=== PATIENT | female | born 1995 | race American Indian/Alaskan Native ===

== ENCOUNTER 2017-03-14 17:16 | Inpatient (IN) | payer OTHER ==
[~2017-03-14] VITALS: Ht 162.6 cm; Wt 92.0 kg
[~2017-03-14 17:16] MED LIST: ASCORBIC ACID500 M3 PO; BIRTH CONTROL PO; FERROUS SULFAT325 MG PO; LEVORA-281 EACH PO; OXYCODON-ACETA1 EAC2 PO; VITAMIN D35000 UNIT PO
--- NOTE | 2017-03-16 07:40 | PR ---
[facility] [address] [facility] [address] [facility] [place], [place] [address] Signed PP Progress Notes Datetime Report Generated by KAROLINE: 03/16/2017 07:40 SUBJECTIVE: [id number] Pain: Within normal limits Vital Signs: [id number] Vital Signs: Reviewed; Within Normal Limits EXAM: [id number] Cardiovascular: Not Done Respiratory: Not Done Abdomen/Uterus: Abnormal Lochia: Normal Vulva/Perineum: Not Done Breasts: Not Done CVA Tenderness: Not Done Extremities: Normal Incision: Not Applicable Progress: Normal Exam Comments: Fundus firm, NT @ U-1. H/H /27.5, WBC 17.8, plat 255k IMPRESSION/PLAN/PROCEDURES: [id number] Impression: Normal progression Plan: Discharge Procedures: None Progress Notes: Doing well. Desires D/C today. Signing Physician: Kimmie Tinsley MD CC: *Electronically Signed* 03/16/17 0740 KIMMIE TINSLEY MD PATIENT NAME: AUBREY CASTILLO PROGRESS NOTE DATE OF : 89 PHYSICIAN: KIMMIE TINSLEY MD RPT #: [id number] REPORT IS CONFIDENTIAL AND NOT TO BE RELEASED WITHOUT AUTHORIZATION
== END 2017-03-17 12:10 | disposition home or self-care (01) | DRG 775 ==
LOC: FBCO 17:16 → FBC 19:00
PROVIDERS: ADMIT Obstetrics & Gynecology
PROC: 00HU33Z Insertion of Infusion Device into Spinal Canal, Percutaneous Approach (ICD-10-PCS; 2017-03-14)
PROC: 3E0R3BZ Introduction of Anesthetic Agent into Spinal Canal, Percutaneous Approach (ICD-10-PCS; 2017-03-14)
PROC: 10E0XZZ Delivery of Products of Conception, External Approach (ICD-10-PCS; principal; 2017-03-15)
PROC: 0KQM0ZZ Repair Perineum Muscle, Open Approach (ICD-10-PCS; 2017-03-15)
DX: O70.1 Second degree perineal laceration during delivery (principal); Z37.0 Single live birth; O76 Abnormality in fetal heart rate and rhythm complicating labor and delivery; Z88.0 Allergy status to penicillin; Z3A.38 38 weeks gestation of pregnancy
CPT/HCPCS: 01960; 36415; 59025; 85027; 99213; J2590; J2795; J3010; J7120

== ENCOUNTER 2021-02-06 02:40 | Emergency (ER) | payer BC, OTHER | END 2021-02-06 05:20 | disposition short-term general hospital (02) | LOC: ED 02:40 | DX: S06.5X9A Traumatic subdural hemorrhage with loss of consciousness of unspecified duration, initial encounter (principal); S06.6X9A Traumatic subarachnoid hemorrhage with loss of consciousness of unspecified duration, initial encounter; S06.1X9A Traumatic cerebral edema with loss of consciousness of unspecified duration, initial encounter; S02.101A Fracture of base of skull, right side, initial encounter for closed fracture; S02.102A Fracture of base of skull, left side, initial encounter for closed fracture; S02.119A Unspecified fracture of occiput, initial encounter for closed fracture; F10.129 Alcohol abuse with intoxication, unspecified; Y90.5 Blood alcohol level of 100-119 mg/100 ml; V89.2XXA Person injured in unspecified motor-vehicle accident, traffic, initial encounter; Z88.0 Allergy status to penicillin; Z79.899 Other long term (current) drug therapy; Z20.822 Contact with and (suspected) exposure to COVID-19 | CPT/HCPCS: 12002; 51702; 70450; 70486; 71045; 71260; 72125; 72170; 74177; 80053; 81001; 82553; 83605; 83690; 84703; 85025; 86850; 86900; 86901; 90471; 90715; 92950; 94002; 99291; 99292; C9803; G0480; J0330; J2405; J2704; J3010; Q9967; U0003 ==

== ENCOUNTER 2022-01-05 17:35 | Inpatient (IN) | payer BC, OTHER ==
[~2022-01-05] VITALS: Ht 162.6 cm; Wt 94.8 kg
--- NOTE | 2022-01-06 08:47 | PR ---
[facility] [address] [facility] [place], [place] [address] Signed PP Progress Notes Datetime Report Generated by CPN: 01/06/2022 08:47 SUBJECTIVE: [id number] Pain: Within Normal Limits Vital Signs: [id number] Vital Signs: Reviewed; Within Normal Limits EXAM: Ongoing Cardiovascular: Not Done Respiratory: Not Done Abdomen/Uterus: Abnormal Lochia: Normal Vulva/Perineum: Not Done Breasts: Not Done CVA Tenderness: Not Done Extremities: Normal Incision: Not Applicable Progress: Normal Exam Comments: Fundus firm, NT @ U-1. H/H 10.7/33, WBC 10.7, plat 212k IMPRESSION/PLAN/PROCEDURES: [id number] Impression: Normal Progression Plan: Discharge Procedures: None Progress Notes: Doing well. She desires D/C at 24 hrs. Signing Physician: Kimmie Tinsley MD Copies: ~ *Electronically Signed* 01/06/22 0847 KIMMIE TINSLEY MD PATIENT NAME: AUBREY CASTILLO PROGRESS NOTE DATE OF : [birth year] PHYSICIAN: KIMMIE TINSLEY MD RPT #: [id number] REPORT IS CONFIDENTIAL AND NOT TO BE RELEASED WITHOUT AUTHORIZATION
== END 2022-01-06 22:22 | disposition home or self-care (01) | DRG 807 ==
LOC: FBCO 17:35 → FBC 19:09
PROVIDERS: ADMIT Obstetrics & Gynecology; ATTEND Obstetrics & Gynecology
PROC: 10E0XZZ Delivery of Products of Conception, External Approach (ICD-10-PCS; principal; 2022-01-05)
PROC: 0KQM0ZZ Repair Perineum Muscle, Open Approach (ICD-10-PCS; 2022-01-05)
PROC: 10907ZC Drainage of Amniotic Fluid, Therapeutic from Products of Conception, Via Natural or Artificial Opening (ICD-10-PCS; 2022-01-05)
DX: O69.1XX0 Labor and delivery complicated by cord around neck, with compression, not applicable or unspecified (principal); Z37.0 Single live birth; O70.1 Second degree perineal laceration during delivery; Z3A.38 38 weeks gestation of pregnancy; Z79.899 Other long term (current) drug therapy; Z88.0 Allergy status to penicillin; Z90.49 Acquired absence of other specified parts of digestive tract; Z20.822 Contact with and (suspected) exposure to COVID-19
CPT/HCPCS: 36415; 85027; 86850; 86900; 86901; 87502; A9270; J2210; J2590; U0003

== ENCOUNTER 2023-08-22 12:57 | Inpatient (IN) | payer OTHER ==
[~2023-08-22] VITALS: Ht 160 cm; Wt 98.4 kg
[2023-08-22] MEDS ORDERED: OXYTOCIN 10 UNITS/ML VIAL ONE (13:11)
[2023-08-22] MEDS ORDERED: WITCH HAZEL/GLYCERIN 1 EA PAD TOP PRN (13:30)
[2023-08-22] MEDS ORDERED: HYDROCORTISONE ACETATE 25 MG SUPP PR PRN (13:30)
[2023-08-22] MEDS ORDERED: HYDROCODONE/ACETA 5/325 TAB PO PRN (13:30)
[2023-08-22] MEDS ORDERED: IBUPROFEN 600 MG TAB PO PRN (13:30)
[2023-08-22] MEDS ORDERED: LIDOCAINE 2% VISCOUS 6 ML SYR TOP ONE ×3 (13:30→15:15)
[2023-08-22] MEDS ORDERED: BENZOCAINE 60 ML AEROSOL TOP PRN (13:30)
[2023-08-22] MEDS ORDERED: CALCIUM CARBONATE 500 MG CHEW PO PRN (13:30)
[2023-08-22] MEDS ORDERED: MAGNESIUM HYDROXIDE 30 ML UDC PO PRN (13:30)
[2023-08-22] MEDS ORDERED: MAGNESIUM HYDROXIDE/AL HYDROX 30 ML CUP PO PRN (13:30)
[2023-08-22] MEDS ORDERED: ACETAMINOPHEN 325 MG TAB PO PRN (13:30)
[2023-08-22] MEDS ORDERED: OXYTOCIN/0.9 % SODIUM CHLORIDE 500 ML IV SCH (13:30)
[2023-08-22] MEDS ORDERED: OXYTOCIN/DEXTROSE 5% 20 UNITS/100 ML BAG IV SCH (15:15)
[2023-08-22 18:27] LABS: HEMATOCRIT 35.4 % (35.0-50.0); HEMOGLOBIN 11.6 g/dL (12.0-18.0); MCH 27.3 (27-36); MCHC 32.8 g/dl (30-36); MCV 83.2 fl (81-99); RBC 4.25 M/ul (4.3-5.7); RDW 15.6 (10.5-15.0)
[2023-08-22] MEDS ORDERED: SENNOSIDES/DOCUSATE 1 EA TAB PO SCH (21:00)
[2023-08-23 00:31] LABS: AMPHETAMINES, URINE NEGATIVE (NEGATIVE); BARBITURATES, URINE NEGATIVE (NEGATIVE); BENZODIAZEPINE, URINE NEGATIVE (NEGATIVE); BUPRENORPHINE, URINE NEGATIVE (NEGATIVE); CANNABINOID, URINE NEGATIVE (NEGATIVE); COCAINE, URINE NEGATIVE (NEGATIVE); ECSTASY, URINE NEGATIVE (NEGATIVE); FENTANYL, URINE NEGATIVE (NEGATIVE); METHADONE, URINE NEGATIVE (NEGATIVE); OPIATES, URINE NEGATIVE (NEGATIVE); OXYCODONE, URINE NEGATIVE (NEGATIVE); PHENCYCLIDINE, URINE NEGATIVE (NEGATIVE)
[2023-08-23 06:26] LABS: HEMATOCRIT 35.6 % (35.0-50.0); HEMOGLOBIN 11.6 g/dL (12.0-18.0); MCH 27.5 (27-36); MCHC 32.7 g/dl (30-36); RBC 4.23 M/ul (4.3-5.7); RDW 15.9 (10.5-15.0)
--- NOTE | 2023-08-23 07:16 | PR ---
[facility] [address] [facility] [place], [place] [address] Signed PP Progress Notes Datetime Report Generated by CPN: 08/23/2023 07:16 SUBJECTIVE: [id number] Pain: Within Normal Limits Nausea/Vomiting: Denies Flatus: Yes Bowel Movement: No Vital Signs: [id number] Vital Signs: Reviewed; Within Normal Limits EXAM: Ongoing Cardiovascular: Normal Respiratory: Normal Abdomen/Uterus: Normal Lochia: Normal Vulva/Perineum: Not Done Breasts: Not Done CVA Tenderness: Normal Extremities: Normal Incision: Not Applicable Progress: Normal Exam Comments: Fundus firm U-2 nontender IMPRESSION/PLAN/PROCEDURES: [id number] Impression: Normal Progression Plan: Discharge Progress Notes: Pt seen and examined. Doing well. Ambulating, voiding, and tolerating full diet. Pain and lochia minimal. . No concerns. Desires d/c home today. Reviewed d/c instructions and medications. Unsure of plans for pp contraception. All questions answered. Signing Physician: Sandi Kim DO Copies: ~ *Electronically Signed* 08/23/23 0716 SANDI KIM (RACHEL) DO PATIENT NAME: AUBREY CASTILLO PROGRESS NOTE DATE OF : [birth year] PHYSICIAN: SANDI KIM (JD) DO RPT #: [id number] REPORT IS CONFIDENTIAL AND NOT TO BE RELEASED WITHOUT AUTHORIZATION
== END 2023-08-23 17:38 | disposition home or self-care (01) | DRG 807 ==
LOC: FBCO 12:57 → FBC 13:00 → FBCO 13:07 → FBC 08-23 17:38
PROVIDERS: Obstetrics & Gynecology; ADMIT Obstetrics & Gynecology; ATTEND Obstetrics & Gynecology
PROC: 10E0XZZ Delivery of Products of Conception, External Approach (ICD-10-PCS; principal; 2023-08-22)
DX: O62.3 Precipitate labor (principal); Z37.0 Single live birth; O77.0 Labor and delivery complicated by meconium in amniotic fluid; Z3A.38 38 weeks gestation of pregnancy; Z88.0 Allergy status to penicillin; Z88.8 Allergy status to other drugs, medicaments and biological substances; Z91.038 Other insect allergy status; Z90.49 Acquired absence of other specified parts of digestive tract; Z96.21 Cochlear implant status; O99.284 Endocrine, nutritional and metabolic diseases complicating childbirth; E55.9 Vitamin D deficiency, unspecified; O99.345 Other mental disorders complicating the puerperium; F53.0 Postpartum depression
CPT/HCPCS: 36415; 80307; 85027; A9270; J2590